=== PATIENT | male | born 1975 | race Caucasian/White ===

== ENCOUNTER 2020-03-30 15:08 | Inpatient (IN) | payer OTHER ==
--- NOTE | 2020-03-30 15:46 | BHS.RME ---
Substance Use & Tx History - Substance Use History Heroin Substance amount: 20 bags Frequency of use: Daily Substance route: Injection (ex: intravenous or skin popping) Date of Last Use: 03/29/20 Xanax Substance amount: 2 mg, 5 tabs Frequency of use: Daily Substance route: Oral Date of Last Use: 03/30/20 - Last Treatment Date of last treatment: [facility] visit Physical/Psych/Mental Status - Behavior General Behavior: Increased activity (restlessness, agitation) Eye Contact: Normal - Cooperativeness Cooperativeness: Cooperative - Thinking Thought Processes: Tight Thought content: Future oriented - Physical Health Problems Is patient presently having any pain?: No Does patient presently have any injuries (include location): No Does patient currently have a fever: No COWS - Scale Resting Pulse: 1= DC 81-100 Sweatin=Flushed/Facial Moisture Restless Observation: 1= Difficult to Sit Still Pupil Size: 1= Pupils >than Normal Bone or Joint Aches: 1= Mild Discomfort Runny Nose/ Eye Tearin= None GI Upset > 30mins: 0= None Tremor Observation: 2= Slight Tremor Visible Yawning Observation: 0= None Anxiety or Irritability: 1=Feels Anxious/Irritable Goose Flesh Skin: 0=Smooth Skin COWS Score: 9 CIWA Nausea/Vomitin-No Nausea/No Vomiting Muscle Tremors: 4-Moderate,w/Arms Extend Anxiety: 3 Agitation: 0-Normal Activity Paroxysmal Sweats: 2 Orientation: 0-Oriented Tacttile Disturbances: 0-None Auditory Disturbances: 1-Very Mild Visual Disturbances: 1-Very Mild Sensitivity Headache: 0-None Present CIWA-Ar Total Score: 11
--- NOTE | 2020-03-30 17:26 | HP ---
COWS - Scale Resting Pulse: 1= LA 81-100 Sweatin=Flushed/Facial Moisture Restless Observation: 1= Difficult to Sit Still Pupil Size: 1= Pupils >than Normal Bone or Joint Aches: 1= Mild Discomfort Runny Nose/ Eye Tearin= None GI Upset > 30mins: 0= None Tremor Observation: 2= Slight Tremor Visible Yawning Observation: 0= None Anxiety or Irritability: 1=Feels Anxious/Irritable Goose Flesh Skin: 0=Smooth Skin COWS Score: 9 CIWA Score Nausea/Vomitin-No Nausea/No Vomiting Muscle Tremors: 4-Moderate,w/Arms Extend Anxiety: 3 Agitation: 0-Normal Activity Paroxysmal Sweats: 2 Orientation: 0-Oriented Tacttile Disturbances: 0-None Auditory Disturbances: 1-Very Mild Visual Disturbances: 1-Very Mild Sensitivity Headache: 0-None Present CIWA-Ar Total Score: 11 - Admission Criteria OASAS Guidelines: Admission for Medically Managed Detox: Requires at least one of the followin. CIWA greater than 12 2. Seizures within the past 24 hours 3. Delirium tremens within the past 24 hours 4. Hallucinations within the past 24 hours 5. Acute intervention needed for co occurring medical disorder 6. Acute intervention needed for co occurring psychiatric disorder 7. Severe withdrawal that cannot be handled at a lower level of care (continued vomiting, continued diarrhea, abnormal vital signs) requiring intravenous medication and/or fluids 8. Admitting History and Physical - Admission Chief Complaint: detox from heroin and xanax Admission [facility] Chief Complaint: detox from heroin and xanax Allergies/Adverse Reactions: Allergies Allergy/AdvReac Type Severity Reaction Status Date / Time No Known Allergies Allergy Verified 03/30/20 20:09 History of Present Illness: Patient is a 44 y/o male with a past medical history of HIV and depression who presents for detox for using heroin and xanax. Patient started using heroin at age 23. In one day patient uses 20 bags of heroin a day. He is also currently being treated with suboxone for his heroin addiction. Patient last took heroin yesterday afternoon. Patient admits to using IV heroin. Patient started taking xanax at age 19, and he takes 5 pills of xanax a day. He buys it off the street. Patient last took xanax yesterday afternoon. Patient has used rehab in the past multiple times. - Substance Use History Heroin Substance amount: 20 bags Frequency of use: Daily Substance route: Injection (ex: intravenous or skin popping) Date of Last Use: 03/29/20 Xanax Substance amount: 2 mg, 5 tabs Frequency of use: Daily Substance route: Oral Date of Last Use: 03/30/20 Patient lives in a studio in [place]. He does not have a job. Patient meets inpatient criteria for detox from xanax, he is not prescribed any benzos. - Review of Systems Constitutional: Chills, Fever, Other (dizzy) Respiratory: denies: Cough, Shortness of Breath Cardiac: denies: Chest Pain GI: reports: Constipated, Abdominal cramping. denies: Diarrhea, Nausea, Vomiting Musculoskeletal: denies: Muscle Pain Psychiatric: reports: Depressed Patient History - Patient Medical History Hx Anemia: No Hx Asthma: No Hx Chronic Obstructive Pulmonary Disease (COPD): No Hx Cancer: No Hx Cardiac Disorders: No Hx Congestive Heart Failure: No Hx Hypertension: No Hx Hypercholesterolemia: No Hx Pacemaker: No HX Cerebrovascular Accident: No Hx Seizures: No Hx Dementia: No Hx Diabetes: No Hx Gastrointestinal Disorders: No Hx Liver Disease: No Hx Genitourinary Disorders: No Hx Sexually Transmitted Disorders: No Hx Renal Disease (ESRD): No Hx Thyroid Disease: No Hx Human Immunodeficiency Virus (HIV): Yes Hx Hepatitis C: No Hx Depression: Yes Hx Suicide Attempt: No Hx Bipolar Disorder: No Hx Schizophrenia: No - Patient Surgical History Past Surgical History: No Hx Neurologic Surgery: No Hx Cataract Extraction: No Hx Cardiac Surgery: No Hx Lung Surgery: No Hx Breast Surgery: No Hx Breast Biopsy: No Hx Abdominal Surgery: No Hx Appendectomy: No Hx Cholecystectomy: No Hx Genitourinary Surgery: No Hx Section: No Hx Orthopedic Surgery: No Hx Hysterectomy: No Anesthesia Reaction: No - PPD History Previous Implant?: Yes Documented Results: Negative w/o proof Implanted On Prior R Admission?: No PPD to be Administered?: Yes - Smoking Cessation Smoking history: Current every day smoker Have you smoked in the past 12 months: Yes Aproximately how many cigarettes per day: 20 Initiated information on smoking cessation: No - Substance & Tx. History Hx Alcohol Use: No Hx Substance Use: Yes Substance Use Type: Heroin Hx Substance Use Treatment: Yes (xanax) - Substances abused Alprazolam (Xanax) Substance route: Oral Frequency: Daily Amount used: 5 - 2mg tabs Age of first use: 19 Date of last use: 03/29/20 Heroin Substance route: Injection Frequency: Daily Amount used: 20 bags /day Age of first use: 27 Date of last use: 03/29/20 Admission Physical Exam [facility] - Physical General Appearance: Yes: No Apparent Distress HEENTM: Yes: Normal ENT Inspection Respiratory: Yes: Normal Breath Sounds, No Respiratory Distress, No Accessory Muscle Use Neck: Yes: Within Normal Limits Cardiology: Yes: Regular Rhythm, Regular Rate Abdominal: Yes: Normal Bowel Sounds, Non Tender, Flat Musculoskeletal: Yes: Within Normal Limits, full range of Motion Extremities: Yes: Within Normal Limits. No: Pedal Edema Integumentary: Yes: Other (small scarbs over b/l anticubital) - Diagnostic (1) Heroin dependence Current Visit: Yes Status: Acute (2) Benzodiazepine withdrawal Current Visit: Yes Status: Acute (3) HIV (human immunodeficiency virus infection) Current Visit: Yes Status: Chronic (4) Depression Current Visit: Yes Status: Acute Cleared for Admission [facility] - Detox or Rehab [facility] Level of Care: Medically Managed Detox Regimen/Protocol: Valium, Suboxone Breathalyzer - Breathalyzer Breathalyzer: 0 Vital Signs - Vital Signs Vital signs refused: No Temperature: 98.2 F Temperature source: Oral Pulse Rate: 91 Respiratory Rate: 18 Blood Pressure: 127/81 - Height Height: 5 ft 8 in - Weight Weight: 63.503 kg - BMI Body Mass Index (BMI): 21.2 Inpatient Rehab Admission - Rehab Decision to Admit Inpatient rehab admission?: No
[2020-03-30] MEDS ORDERED: ACETAMINOPHEN 325 MG TABLET (FP) PO PRN ×2 (17:50)
[2020-03-30] MEDS ORDERED: NICOTINE POLACRILEX 2 MG GUM BUC PRN (17:50)
[2020-03-30] MEDS ORDERED: MENTHOL/PHENOL 1 EACH UD MM PRN (17:50)
[2020-03-30] MEDS ORDERED: BISMUTH SUBSALICYLATE 524 MG/30 ML UD PO PRN (17:50)
[2020-03-30] MEDS ORDERED: MAGNESIUM HYDROX 2400MG/30ML ORAL SUSPENSION 30 ML CUP PO PRN (17:50)
[2020-03-30] MEDS ORDERED: ONDANSETRON *ODT* 4 MG TABLET SL ONE (17:50)
[2020-03-30] MEDS ORDERED: MAGNESIUM CITRATE 300 ML BOTTLE PO PRN (17:50)
[2020-03-30] MEDS ORDERED: MAG HYDROX/AL HYDROX/SIMETH 30 ML UNIT-DOSE CUP PO PRN (17:50)
[2020-03-30] MEDS ORDERED: METHOCARBAMOL 500 MG TABLET PO PRN (17:50)
[2020-03-30] MEDS ORDERED: DOCUSATE SODIUM 100 MG CAPSULE (FP) PO ONE (18:00)
[2020-03-30] MEDS ORDERED: ONDANSETRON *ODT* 4 MG TABLET SL PRN (18:05)
[2020-03-30] MEDS: hydrOXYzine PAMOATE 25 MG CAPSULE (FP) PO SCH ×2 (20:57→21:19)
[2020-03-30] MEDS: SENNOSIDES 8.6MG TABLET (FP) PO SCH (21:00)
[2020-03-30] MEDS: diazePAM 5 MG TABLET PO SCH (21:00)
[2020-03-30] MEDS: THIAMINE HCL 100 MG TABLET (FP) PO SCH (21:00)
[2020-03-30] MEDS: NICOTINE 21 MG/24 HOURS TOPICAL PATCH TD SCH (21:05)
[2020-03-30] MEDS: EMTRICITAB/RILPIVIRI/TENOF ALA (ODEFSEY) TABLET PO SCH (21:05)
[2020-03-30] MEDS: PRENATAL VITAMINS W/ FOLIC ACID TABLET (FP) PO SCH (21:06)
[2020-03-30] MEDS: BUPRENORPHINE/NALOXONE 8 MG/2 MG FILM PACKET SL SCH (21:18)
[2020-03-30] MEDS: MELATONIN 5 MG TABLETS PO SCH (21:19)
[2020-03-31] MEDS: hydrOXYzine PAMOATE 25 MG CAPSULE (FP) PO SCH (05:40)
[2020-03-31] MEDS: diazePAM 5 MG TABLET PO SCH ×3 (05:40→22:22)
[2020-03-31] MEDS: BUPRENORPHINE/NALOXONE 8 MG/2 MG FILM PACKET SL SCH ×3 (05:40→22:23)
[2020-03-31] MEDS ORDERED: hydrOXYzine PAMOATE 25 MG CAPSULE (FP) PO PRN (08:36)
--- NOTE | 2020-03-31 08:55 | PN ---
S CIWA - CIWA Score Nausea/Vomitin-No Nausea/No Vomiting Muscle Tremors: 3 Anxiety: 2 Agitation: 3 Paroxysmal Sweats: 2 Orientation: 0-Oriented Tacttile Disturbances: 0-None Auditory Disturbances: 0-None Visual Disturbances: 0-None Headache: 0-None Present CIWA-Ar Total Score: 10 BHS Progress Note (SOAP) Subjective: body aches sweats shakes chills interrupted sleep Objective: 03/31/20 08:55 Vital Signs Temperature 98.4 F 03/31/20 08:35 Pulse Rate 66 03/31/20 08:35 Respiratory Rate 18 03/31/20 08:35 Blood Pressure 112/73 03/31/20 08:35 O2 Sat by Pulse Oximetry (%) 97 03/31/20 08:35 labs pending aaox3 lying in bed no acute distress pt is currently on suboxone treatment program at [facility]; COMPOSITION FLOOR LAYER pulled up to confirm pt is currently taking suboxone. Patient Name: Antony DoeBirth Date: 1975 Address: [address] [place], [place] [address]Sex: Male Rx Written Rx Dispensed Drug Quantity Days Supply Prescriber Name Payment Method Dispenser 03/06/2020 03/06/2020 buprenorphine-naloxone 8-2 mg sl film 90 30 Elena Mendoza MD Medicaid [facility] #[id number] 02/18/2020 02/18/2020 buprenorphine-naloxone 8-2 mg sl film 42 14 Aman Santos Medicaid [facility] #[id number] Assessment: 03/31/20 11:12 withdrawals Plan: continue detox with valium regimen only pt is on a suboxone treatment program therefore he is not on suboxone detox. increase fluids pending labs
--- NOTE | 2020-03-31 09:22 | EKG ---
Test Reason : Blood Pressure : / mmHG Vent. Rate : 064 BPM Atrial Rate : 064 BPM P-R Int : 144 ms QRS Dur : 088 ms QT Int : 404 ms P-R-T Axes : 048 072 041 degrees QTc Int : 416 ms NORMAL SINUS RHYTHM NORMAL ECG NO PREVIOUS ECGS AVAILABLE Confirmed by MD FELICIA, AMI ([id number]) on 03/31/2020 9:21:45 AM Referred By: Confirmed By:AMI DUARTE MD
--- NOTE | 2020-03-31 09:49 | CONSULT ---
[facility] Psychiatric Consult - Data Date of interview: 03/31/20 Admission source: [facility] program in [facility] Identifying data: Mr Doe is a 44 years old single male, unemployed receiving SSI, living in a studio in [place], [place] seeking detox treatment for benzodiazepine Substance Abuse History: Reports history of heroin and xanax use. Refer to addiction counselor's summary for further information Medical History: Significant for HIV. Patient is on Suboxone 8 mg/2 mg tid from [facility]. Smokes cigarettes 1 ppd Psychiatric History: This is patient's first admission to this facility. He reports that his first psychiatric contact occured after he tried to hang himself in the context of command auditry hallucinations while in penitentiary in [facility]. He said that he was admitted to psychiatric hospital and started on psychotropic medications. He has no recollection of name of medication. After he imigrated to [facility], he saw a psychiatrist in 2011 at [facility] for depression, anxiety and auditory hallucinations and he was started on Remeron and Zyprexa. Reports that he has been receiving outpatient psychiatric treatment on & off at same facility. He reports that he last saw the psychiatrist 2 months ago and he is currently on Remeron 45 mg/hs and Zyprexa 10 mg/hs. At present, denies experiencing psychotic symptoms, S.H ideations. However, reports feeling depressed and sleeping poorly Physical/Sexual Abuse/Trauma History: Denies history of abuse as a child or DV relationship as an adult Mental Status Exam - Mental Status Exam Alert and Oriented to: Time, Place, Person Cognitive Function: Fair Patient Appearance: Well Groomed Mood: Depressed Affect: Appropriate Patient Behavior: Cooperative Speech Pattern: Clear Voice Loudness: Normal Thought Process: Intact, Goal Oriented Thought Disorder: Not Present Hallucinations: Denies Suicidal Ideation: Denies Homicidal Ideation: Denies Insight/Judgement: Poor Sleep: Poorly Appetite: Poor Muscle strength/Tone: Normal Gait/Station: Normal Psychiatric Findings - Problem List ([place] 1, 2,3) (1) MDD (major depressive disorder), recurrent severe, without psychosis Current Visit: Yes Status: Chronic (2) Substance induced mood disorder Current Visit: Yes Status: Acute (3) Substance-induced sleep disorder Current Visit: Yes Status: Acute (4) Sedative, hypnotic or anxiolytic dependence, uncomplicated Current Visit: Yes Status: Acute (5) Opioid dependence on agonist therapy Current Visit: Yes Status: Chronic (6) Nicotine dependence Current Visit: Yes Status: Chronic (7) HIV (human immunodeficiency virus infection) Current Visit: Yes Status: Chronic - Initial Treatment Plan Initial Treatment Plan: 1) Continue Remeron 45 mg po HS and Zyprexa 10 mg po HS. 2) Continue inpatient detoxification
[2020-03-31] MEDS: NICOTINE 21 MG/24 HOURS TOPICAL PATCH TD SCH (10:26)
[2020-03-31] MEDS: IBUPROFEN 400 MG TABLET (FP) PO PRN (10:30)
[2020-03-31] MEDS: PRENATAL VITAMINS W/ FOLIC ACID TABLET (FP) PO SCH (10:31)
[2020-03-31 11:14] LABS: HEMATOCRIT 39.1 % (35.4-49); HEMOGLOBIN 13.4 GM/dL (11.7-16.9); MCH 32.7 pg (25.7-33.7); MCHC 34.3 g/dl (32.0-35.9); MEAN CELL VOLUME 95.3 fl (80-96); MEAN PLT VOLUME 9.8 fl (7.5-11.1); PLATELET COUNT 209 K/MM3 (134-434); RBC 4.11 M/mm3 (4.00-5.60); RDW 13.6 % (11.9-15.9); WHITE BLOOD COUNT 3.6 K/mm3 (4.0-10.0)
[2020-03-31] MEDS: EMTRICITAB/RILPIVIRI/TENOF ALA (ODEFSEY) TABLET PO SCH (11:16)
[2020-03-31 11:26] LABS: ALBUMIN 3.6 g/dl (3.4-5.0); BLOOD UREA NITROGEN 9.2 mg/dL (7-18); CALCIUM 9.1 mg/dL (8.5-10.1)
[2020-03-31 11:27] LABS: BILIRUBIN,TOTAL 0.8 mg/dL (0.2-1); TOT PROT 7.1 g/dl (6.4-8.2)
[2020-03-31 13:19] VITALS: BMI 21.2
[2020-03-31] MEDS: diazePAM 5 MG TABLET PO PRN (17:03)
[2020-03-31] MEDS: MIRTAZAPINE 15 MG TABLET (FP) PO SCH (22:22)
[2020-03-31] MEDS: OLANZapine 10 MG TABLET PO SCH (22:22)
[2020-03-31] MEDS: THIAMINE HCL 100 MG TABLET (FP) PO SCH (22:23)
[2020-03-31] MEDS: SENNOSIDES 8.6MG TABLET (FP) PO SCH (22:23)
[2020-03-31] MEDS: MELATONIN 5 MG TABLETS PO SCH (22:26)
[2020-04-01] MEDS: BUPRENORPHINE/NALOXONE 8 MG/2 MG FILM PACKET SL SCH ×3 (05:31→22:11)
[2020-04-01] MEDS: diazePAM 5 MG TABLET PO SCH ×2 (05:32→17:52)
[2020-04-01] MEDS: IBUPROFEN 400 MG TABLET (FP) PO PRN (08:45)
[2020-04-01] MEDS: NICOTINE 21 MG/24 HOURS TOPICAL PATCH TD SCH (10:17)
[2020-04-01] MEDS: PRENATAL VITAMINS W/ FOLIC ACID TABLET (FP) PO SCH (10:20)
[2020-04-01] MEDS: EMTRICITAB/RILPIVIRI/TENOF ALA (ODEFSEY) TABLET PO SCH (10:20)
[2020-04-01] MEDS: diazePAM 5 MG TABLET PO PRN ×3 (10:20→22:14)
--- NOTE | 2020-04-01 10:21 | PN ---
Teaching Attending Note Name of Resident: Marisa Mabry ATTENDING PHYSICIAN STATEMENT I saw and evaluated the patient. I reviewed the resident's note and discussed the case with the resident. I agree with the resident's findings and plan as documented. SUBJECTIVE: OBJECTIVE: ASSESSMENT AND PLAN: Agree with resident's findings and detox plan.
--- NOTE | 2020-04-01 13:40 | PN ---
S CIWA - CIWA Score Nausea/Vomitin-No Nausea/No Vomiting Muscle Tremors: 3 Anxiety: 2 Agitation: 2 Paroxysmal Sweats: 2 Orientation: 0-Oriented Tacttile Disturbances: 0-None Auditory Disturbances: 0-None Visual Disturbances: 0-None Headache: 0-None Present CIWA-Ar Total Score: 9 BHS Progress Note (SOAP) Subjective: poor appetite sweats anxiety interrupted sleep Objective: 04/01/20 13:37 Vital Signs Temperature 97.1 F L 04/01/20 08:39 Pulse Rate 59 L 04/01/20 08:39 Respiratory Rate 16 04/01/20 08:39 Blood Pressure 120/76 04/01/20 08:39 O2 Sat by Pulse Oximetry (%) 99 04/01/20 08:39 Laboratory Tests 03/30/20 03/31/20 03/31/20 19:10 08:10 08:10 WBC 3.6 L RBC 4.11 Hgb 13.4 Hct 39.1 MCV 95.3 MCH 32.7 MCHC 34.3 RDW 13.6 Plt Count 209 MPV 9.8 Sodium Potassium Chloride Carbon Dioxide Anion Gap BUN Creatinine Est GFR (CKD-EPI)AfAm Est GFR (CKD-EPI)NonAf Random Glucose Calcium Total Bilirubin AST ALT Alkaline Phosphatase Total Protein Albumin Syphilis Serology Non-reactive COVID-19 ([facility]ETH) Not detected 03/31/20 08:10 WBC RBC Hgb Hct MCV MCH MCHC RDW Plt Count MPV Sodium 141 Potassium 4.0 Chloride 105 Carbon Dioxide 32 Anion Gap 4 L BUN 9.2 Creatinine 1.0 Est GFR (CKD-EPI)AfAm 106.36 Est GFR (CKD-EPI)NonAf 91.77 Random Glucose 103 Calcium 9.1 Total Bilirubin 0.8 AST 61 H ALT 44 Alkaline Phosphatase 80 Total Protein 7.1 Albumin 3.6 Syphilis Serology COVID-19 (ELIZABETH) labs noted aaox3 ambulating no acute distress Assessment: 04/01/20 13:38 withdrawals Plan: ensure plus BID increase fluids continue detox
[2020-04-01] MEDS: OLANZapine 10 MG TABLET PO SCH (22:11)
[2020-04-01] MEDS: SENNOSIDES 8.6MG TABLET (FP) PO SCH (22:11)
[2020-04-01] MEDS: MIRTAZAPINE 15 MG TABLET (FP) PO SCH (22:11)
[2020-04-01] MEDS: THIAMINE HCL 100 MG TABLET (FP) PO SCH (22:11)
[2020-04-01] MEDS: MELATONIN 5 MG TABLETS PO SCH (23:28)
[2020-04-02] MEDS: BUPRENORPHINE/NALOXONE 8 MG/2 MG FILM PACKET SL SCH (05:15)
[2020-04-02] MEDS: IBUPROFEN 400 MG TABLET (FP) PO PRN (05:16)
[2020-04-02] MEDS ORDERED: diazePAM 5 MG TABLET PO ONE (06:00)
[2020-04-02 09:27] VITALS: BP 110/67; PULSE 54; TEMP 96.2
--- NOTE | 2020-04-02 11:07 | DS ---
[facility] Detox Discharge Summary Admission Date: 03/30/20 Discharge Date: 04/02/20 - History Present History: Sedative Dependence - Physical Exam Results Vital Signs: Vital Signs Temperature 96.2 F L 04/02/20 09:29 Pulse Rate 54 L 04/02/20 09:29 Respiratory Rate 17 04/02/20 09:29 Blood Pressure 110/67 04/02/20 09:29 O2 Sat by Pulse Oximetry (%) 98 04/02/20 09:29 Pertinent Admission Physical Exam Findings: Vital Signs Temperature 96.2 F L 04/02/20 09:29 Pulse Rate 54 L 04/02/20 09:29 Respiratory Rate 17 04/02/20 09:29 Blood Pressure 110/67 04/02/20 09:29 O2 Sat by Pulse Oximetry (%) 98 04/02/20 09:29 Laboratory Tests 03/30/20 03/31/20 03/31/20 19:10 08:10 08:10 WBC 3.6 L RBC 4.11 Hgb 13.4 Hct 39.1 MCV 95.3 MCH 32.7 MCHC 34.3 RDW 13.6 Plt Count 209 MPV 9.8 Sodium Potassium Chloride Carbon Dioxide Anion Gap BUN Creatinine Est GFR (CKD-EPI)AfAm Est GFR (CKD-EPI)NonAf Random Glucose Calcium Total Bilirubin AST ALT Alkaline Phosphatase Total Protein Albumin Syphilis Serology Non-reactive COVID-19 (ELIZABETH) Not detected 03/31/20 08:10 WBC RBC Hgb Hct MCV MCH MCHC RDW Plt Count MPV Sodium 141 Potassium 4.0 Chloride 105 Carbon Dioxide 32 Anion Gap 4 L BUN 9.2 Creatinine 1.0 Est GFR (CKD-EPI)AfAm 106.36 Est GFR (CKD-EPI)NonAf 91.77 Random Glucose 103 Calcium 9.1 Total Bilirubin 0.8 AST 61 H ALT 44 Alkaline Phosphatase 80 Total Protein 7.1 Albumin 3.6 Syphilis Serology COVID-19 ([facility]ETH) aaox3 ambulating no acute distress lungs CTA - Treatment Hospital Course: Detox Protocol Followed, Detoxed Safely, Responded well, Discharged Condition Good, Rehab Referral Accepted - Medication Discharge Medications: Ambulatory Orders Buprenorphine/Naloxone [Suboxone 8Mg/2Mg Sl Film -] 1 each PO TID 03/30/20 Emtricitab/Rilpiviri/Tenof Ala [Odefsey Tablet] 1 tab PO DAILY 03/30/20 Mirtazapine [Remeron -] 45 mg PO DAILY 03/30/20 Olanzapine [Zyprexa] 10 mg PO DAILY 03/30/20 - Diagnosis (1) Benzodiazepine withdrawal Status: Chronic Qualifiers: Complication of substance-induced condition: uncomplicated Qualified Code(s): F13.230 - Sedative, hypnotic or anxiolytic dependence with withdrawal, uncomplicated (2) Depression Status: Acute (3) Sedative, hypnotic or anxiolytic dependence, uncomplicated Status: Chronic (4) Substance induced mood disorder Status: Acute (5) Substance-induced sleep disorder Status: Acute (6) HIV (human immunodeficiency virus infection) Status: Chronic Qualifiers: HIV symptom status: unspecified Qualified Code(s): B20 - Human immunodeficiency virus [HIV] disease (7) MDD (major depressive disorder), recurrent severe, without psychosis Status: Chronic (8) Nicotine dependence Status: Chronic (9) Encounter for monitoring Suboxone maintenance therapy Status: Chronic - AMA Did Patient Leave Against Medical Advice: No
== END 2020-04-02 10:21 | disposition home or self-care (01) | DRG 773 ==
LOC: YASAS 15:08 → Y6N 18:18
PROVIDERS: ADMIT Allergy & Immunology; ATTEND Allergy & Immunology
PROC: HZ2ZZZZ Detoxification Services for Substance Abuse Treatment (ICD-10-PCS; principal; 2020-03-30)
DX: F13.230 Sedative, hypnotic or anxiolytic dependence with withdrawal, uncomplicated (principal); F11.20 Opioid dependence, uncomplicated; F17.210 Nicotine dependence, cigarettes, uncomplicated; F19.282 Other psychoactive substance dependence with psychoactive substance-induced sleep disorder; F19.24 Other psychoactive substance dependence with psychoactive substance-induced mood disorder; F33.2 Major depressive disorder, recurrent severe without psychotic features; Z21 Asymptomatic human immunodeficiency virus [HIV] infection status; Z51.81 Encounter for therapeutic drug level monitoring; Z79.899 Other long term (current) drug therapy; Z56.0 Unemployment, unspecified
CPT/HCPCS: 36415; 80053; 85027; 86780; 93005; 93010; Q0162; U0003